=== PATIENT | female | born 2000 | race Caucasian/White ===

== ENCOUNTER 2019-05-29 06:53 | Emergency (ER) | payer MEDICAID ==
[~2019-05-29] VITALS: Ht 157.5 cm; Wt 65.4 kg
[~2019-05-29 06:53] MED LIST: NO HOME MEDS
[2019-05-29 06:59] VITALS: BP 117/68
--- NOTE | 2019-05-29 07:31 | NUR ---
HAS HX OF KNEE PAIN FROM SPORTS BUT ABOUT A WEEK AGO AND HAS NOT BEEN GETTING BETTER L KNEE TENDER TO PALPATION ON LOWER INNER ASPECT OF KNEE NO SWELLING TEMP NORMAL ABLE TO AMBULATE
== END 2019-05-29 08:43 | disposition home or self-care (01) ==
LOC: ER 06:54
DX: M25.562 Pain in left knee (principal)
CPT/HCPCS: 29505; 73564; 99284

== ENCOUNTER 2019-06-12 17:47 | Emergency (ER) | payer MEDICAID ==
[~2019-06-12] VITALS: Ht 154.9 cm; Wt 63.6 kg
[2019-06-12 18:18] VITALS: BP 121/68
[2019-06-12] MEDS ORDERED: ondansetron 4mg rapidly disintigrating tab PO ONE (19:35)
[2019-06-12] MEDS ORDERED: HYDROcodone/acetaminophen 5mg/325mg tablet PO ONE (19:35)
== END 2019-06-12 20:19 | disposition home or self-care (01) ==
LOC: ER 17:48
DX: M25.562 Pain in left knee (principal); R22.42 Localized swelling, mass and lump, left lower limb
CPT/HCPCS: 99283

== ENCOUNTER 2020-01-19 23:38 | Emergency (ER) | payer MEDICAID ==
[~2020-01-19] VITALS: Ht 162.6 cm; Wt 63.0 kg
[2020-01-20] MEDS ORDERED: normal saline 1000ml 1,000 ML IV ONE (00:05)
[2020-01-20 00:35] LABS: BASOPHILS # (AUTO) 0.1 X10'3 (0-0.2); BASOPHILS % (AUTO) 0.6 % (0-1); EOSINOPHILS # (AUTO) 0.1 X10'3 (0-0.9); EOSINOPHILS % (AUTO) 0.7 % (0-6); HEMATOCRIT 32.2 % (35.0-45.0); HEMOGLOBIN 10.4 g/dl (12.0-16.0); LYMPHOCYTES # (AUTO) 2.2 X10'3 (1.1-4.8); LYMPHOCYTES % (AUTO) 19.8 % (21-51); MEAN CORPUSCULAR HEMOGLOBIN 25.9 PG (27.0-31.0); MEAN CORPUSCULAR HGB CONC 32.4 g/dL (33.0-36.5); MEAN CORPUSCULAR VOLUME 79.8 FL (78-98); MEAN PLATELET VOLUME 8.3 FL (7.4-10.4); MONOCYTES # (AUTO) 0.6 X10'3 (0-0.9); MONOCYTES % (AUTO) 5.2 % (2-12); NEUTROPHILS # (AUTO) 8.1 X10'3 (1.8-7.7); NEUTROPHILS % (AUTO) 73.7 % (42-75); PLATELET COUNT 323 X10'3 (140-440); RED BLOOD COUNT 4.04 X10'6 (4.20-5.60); RED CELL DISTRIBUTION WIDTH 14.8 % (11.5-14.5)
[2020-01-20 00:50] LABS: HCG SERUM QL NEGATIVE
[2020-01-20 00:55] LABS: ALANINE AMINOTRANSFERASE 17 U/L (12-78); ALBUMIN 3.6 G/DL (3.4-5.0); ALKALINE PHOSPHATASE 48 IU/L (20-180); ANION GAP 7 (8-16); ASPARTATE AMINO TRANSFERASE 8 U/L (10-37); BILIRUBIN,TOTAL 0.7 MG/DL (0.1-1.0); BLOOD UREA NITROGEN 15 MG/DL (7-18); BUN/CREATININE RATIO 20.8 (6.6-38.0); CALCIUM 8.7 MG/DL (8.5-10.1); CHLORIDE 105 MMOL/L (99-107); CREATININE 0.72 MG/DL (0.40-0.90); GLUCOSE 90 MG/DL (70-104); LIPASE 65 U/L (73-393); POTASSIUM 3.5 MMOL/L (3.5-5.1); SODIUM 138 MMOL/L (135-145); TOTAL CARBON DIOXIDE 25.7 MMOL/L (24-32); TOTAL PROTEIN 7.3 G/DL (6.4-8.2); eGFR > 90 ML/MIN
[2020-01-20] MEDS ORDERED: ketorolac tromethamine 15mg/ml inj. IV ONE (01:10)
[2020-01-20 01:39] VITALS: BP 111/75
== END 2020-01-20 01:40 | disposition home or self-care (01) ==
LOC: ER 23:39
DX: R10.84 Generalized abdominal pain (principal); R53.1 Weakness; R55 Syncope and collapse; Z72.89 Other problems related to lifestyle
CPT/HCPCS: 36415; 80053; 83690; 84703; 85025; 93005; 96361; 96374; 99284; J1885; J7030

== ENCOUNTER → 2023-09-04 | Outpatient (CLI) | payer MEDICAID | END | disposition home or self-care (01) | LOC: RAD 15:42 | PROVIDERS: ATTEND Family Medicine | DX: N85.4 Malposition of uterus (principal); N92.0 Excessive and frequent menstruation with regular cycle | CPT/HCPCS: 76856; 93976 ==